=== PATIENT | male | born 1985 | race Caucasian/White ===

== ENCOUNTER 2018-01-17 18:04 | Emergency (ER) | payer BC ==
[2018-01-17] MEDS ORDERED: Acetaminophen 500 MG TAB ONE (19:58)
[2018-01-17] MEDS ORDERED: Metoclopramide HCl 10 MG/2 ML VIAL ONE (19:58)
[2018-01-17] MEDS ORDERED: Dexamethasone 10 MG/ML VIAL ONE (19:58)
[2018-01-17] MEDS ORDERED: diphenhydrAMINE 50 MG/ML VIAL ONE (19:58)
[2018-01-17] MEDS ORDERED: Magnesium 2 GM/50 ML BAG (IN WATER) ONE (21:06)
[2018-01-17] MEDS ORDERED: KETAMINE 100 MG/ML (5ML VIAL) ONE (21:19)
== END 2018-01-17 22:36 | disposition home or self-care (01) ==
LOC: ERS 18:04
DX: G43.909 Migraine, unspecified, not intractable, without status migrainosus (principal); Z79.899 Other long term (current) drug therapy
CPT/HCPCS: 96361; 96365; 96367; 96375; J1100; J1200; J2765